=== PATIENT | female | born 1980 | race Caucasian/White ===

== ENCOUNTER 2020-12-18 19:37 | Emergency (ER) | payer OTHER, SELFPAY ==
--- NOTE | ~2020-12-18 | XR_ITS ---
EXAMINATION: XR HAND, RIGHT CLINICAL INFORMATION: Trauma COMPARISON: None TECHNIQUE: PA, lateral, and oblique views of the right hand. FINDINGS: No acute fracture or dislocation. XR/XR hand RT min 3V IMPRESSION: No acute fracture or dislocation right hand.
[2020-12-18 19:42] VITALS: BP 106/78; PULSE 89; RESP 16; TEMP 36.9; O2SAT 99; BMI 27.2
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
== END 2020-12-18 21:45 | disposition home or self-care (01) ==
PROVIDERS: Emergency Provider Internal Medicine
DX: S60.221A Contusion of right hand, initial encounter (principal); M77.12 Lateral epicondylitis, left elbow; X58.XXXA Exposure to other specified factors, initial encounter; Y93.9 Activity, unspecified; Y92.9 Unspecified place or not applicable; Y99.9 Unspecified external cause status
CPT/HCPCS: 73130; 99283

== ENCOUNTER 2021-09-18 12:23 | Emergency (ER) | payer OTHER, SELFPAY ==
[2021-09-18 12:26] VITALS: BP 126/72; PULSE 96; RESP 16; TEMP 36.7; O2SAT 97; BMI 27.2
--- NOTE | 2021-09-18 13:21 | ED.WOUNDLAC ---
HPI - Wound/Laceration General Chief Complaint: Wound/Laceration Stated Complaint: laceration on thumb Time Seen by Provider: 09/18/21 12:49 Source: patient Mode of arrival: ambulatory Limitations: no limitations History of Present Illness HPI narrative: 40-year-old female presenting to the ED with complaints of a laceration to the inner aspect of her thumb that she cut on glass at home last night accidentally. She reports that she is up-to-date on tetanus. She denies any thoughts of foreign bodies or any paresthesias or any other injuries complaints or concerns at this time. Onset (ago): hour(s) ( Last night) Extremity Location: left: hand (thumb) Place: home Patient tetanus UTD: Yes Context: accidental Associated symptoms: none Related Data Previous Rx's Medication Instructions Recorded ibuprofen 800 mg tablet 800 mg PO Q8H PRN #20 tab 12/18/20 cephalexin 500 mg capsule 500 mg PO Q6H 7 Days #28 cap 09/18/21 Allergies Allergy/AdvReac Type Severity Reaction Status Date / Time No Known Allergies Allergy Verified 09/18/21 12:29 Review of Systems Review of Systems: Constitutional : No Fever, No Chills, Cardiovascular : No Chest Pain, No SOB Respiratory : No Dyspnea Gastrointestinal : No abdominal pain Musculoskeletal : No Joint Swelling Skin : positive skin laceration, No Foreign bodies, No rash, No surrounding erythema Neuro : No Weakness, No Numbness/tingling Psych : No SI/HI/thoughts of self injury Yes all other systems are reviewed and are negative [facility] Past Medical History Attestation statement: The following information was validated with the patient. Medical History No known health problems Social History Social History Advance Directives: No Patient : No Physical Exam Vital Signs: Vital Signs: Last Vital Signs Temp 98.1 F 09/18/21 12:26 Pulse 96 09/18/21 12:26 Resp 16 09/18/21 12:26 BP 126/72 09/18/21 12:26 Pulse Ox 97 09/18/21 12:26 BMI result Body Mass Index 27.2 vital signs have been reviewed as normal and appeared to be correct. Blood pressure normal Heart rate normal. Respiration rate normal. Temperature normal. Oxygen saturation normal. Appearance: Alert. Oriented X3. No acute distress. Head: Normal external exam. Normocephalic. Atraumatic. Eyes: PERRLA. EOMI. Conjunctiva and sclera normal. Eyelids normal. ENT: Pharynx normal. Uvula midline. Moist mucous membranes. Neck: Normal inspection. Neck supple. FROM. CVS: Normal heart rate and rhythm. Respiratory: No respiratory distress. Painless inspiration. Skin: Skin warm and dry. Normal skin color. Normal skin turgor. No rashes/lesions/lacerations noted. Extremities: to left thumb palmar aspect /proximal aspect patient has less than 1 cm superficial laceration no active bleeding or foreign bodies. She has full range of motion of the fingers. No bony tenderness noted. No obvious ligamentous or tendon injury nerve injury noted. Otherwise all other Extremities exhibit normal range of motion and nontender. Neuro: Oriented X 3. No motor deficit. No sensory deficit. Reflexes normal. Normal steady gait. No focal neuro deficits noted. Vascular: + radial pulses/+ 2 distal pedal pulses/+2 dorsalis pedis b/l. Normal cap refill. No cyanosis noted to upper extremity nails and lower extremity toes nails. Course Course Course Narrative: patient status post laceration repair with Dermabond. Tetanus is already up-to-date. No imaging indicated. Will DC home with antibiotics and instructions to return if any new or worsening symptoms to follow up with primary care provider. Patient understands agrees with this plan. MDM - Wound/Laceration Medical Records Attestation: I reviewed the patient's medical records. Discharge Plan Discharge Clinical Impression: Laceration Patient Disposition: Home, Self-Care Instructions: Skin Adhesive Care (ED) Prescriptions: New cephalexin 500 mg capsule 500 mg PO Q6H 7 Days Qty: 28 0RF No Action ibuprofen 800 mg tablet 800 mg PO Q8H PRN (Reason: pain) Qty: 20 0RF Referrals: Physician,Unknown J [Primary Care Provider] - 2 days (your pcp) Print Language: Mongolian
== END 2021-09-18 13:32 | disposition home or self-care (01) ==
PROVIDERS: Emergency Provider Emergency Medicine
DX: S61.012A Laceration without foreign body of left thumb without damage to nail, initial encounter (principal); W25.XXXA Contact with sharp glass, initial encounter; Y93.9 Activity, unspecified; Y92.009 Unspecified place in unspecified non-institutional (private) residence as the place of occurrence of the external cause; Y99.9 Unspecified external cause status
CPT/HCPCS: 12001; 99283

== ENCOUNTER 2021-11-06 21:41 | Emergency (ER) | payer OTHER, SELFPAY ==
[2021-11-06 21:47] VITALS: BP 142/70; PULSE 119; RESP 16; TEMP 38; O2SAT 100; BMI 28.3
[2021-11-06 22:13] LABS: COVID-19 Test Negative (Negative); IDNOW Serial# 16C4AD1C; Influenza A Negative (Negative); Influenza B2 Negative (Negative)
[2021-11-07 05:14] VITALS: BP 138/76; PULSE 103; RESP 18; TEMP 36.9; O2SAT 99
--- NOTE | 2021-11-07 05:52 | ED_ITS ---
HPI - Fever General Chief Complaint: Fever Stated Complaint: Flu like symptoms Time Seen by Provider: 11/07/21 05:52 Source: patient Mode of arrival: ambulatory History of Present Illness HPI Narrative: A 40-year-old female without significant past medical history presents with complaints of body aches, headache, subjective fevers and chills but denies any GI or symptoms and denies any shortness of breath or palpitations. Related Data Previous Rx's Medication Instructions Recorded ibuprofen 800 mg tablet 800 mg PO Q8H PRN #20 tab 12/18/20 cephalexin 500 mg capsule 500 mg PO Q6H 7 Days #28 cap 09/18/21 Allergies Allergy/AdvReac Type Severity Reaction Status Date / Time No Known Allergies Allergy Verified 09/18/21 12:29 Review of Systems Review of Systems: Pertinent positives and negatives as stated in HPI 10 point review of systems otherwise negative. [facility] Past Medical History Source: nursing notes reviewed Medical History No known health problems Social History Social History Advance Directives: No Physical Exam Vital Signs: Vital Signs: Last Vital Signs Temp 98.5 F 11/07/21 05:14 Pulse 103 H 11/07/21 05:14 Resp 18 11/07/21 05:14 BP 138/76 11/07/21 05:14 Pulse Ox 99 11/07/21 05:14 BMI result Body Mass Index 28.3 VITAL SIGNS: Reviewed. GENERAL: Well developed, well nourished, in no acute distress. HEAD: Normocephalic/atraumatic EYES: PERRLA, EOMI EARS: Ext canals without abnormality, TMs non-bulging and non-erythematous NOSE: Nares patent bilateral OROPHARYNX: no oral lesions noted, posterior pharynx clear and non-erythematous without noted tonsillar enlargement/erythema/exudates NECK: Supple, no adenopathy LUNGS: Normal breath sounds. No adventitious sounds or accessory muscle use. SpO2<99> CARDIOVASCULAR: Regular rate and rhythm without noted murmurs ABDOMEN: Soft, non-tender, non-distended with bowel sounds. MUSCULOSKELETAL: No tenderness, deformities, or effusions noted on gross inspection. EXTREMITIES: No cyanosis, clubbing or edema. SKIN: Inspection of the skin reveals no rashes NEUROLOGIC: Alert and oriented x 4. Course Course Course Narrative: 40-year-old female with history and clinical presentation consistent with viral syndrome and on review of all investigations COVID-19 and influenza are negative. However on discussion with the patient she was cautioned that this does not mean that she is negative and it is recommended that she should continue to test herself for COVID-19 for the next 2-3 days, use [id number] Tylenol/ibuprofen as needed for her symptoms. MDM - Fever Lab Data Labs: Lab Results 11/06/21 11/06/21 Range/Units 21:50 21:50 COVID-19 ([facility]) Negative (Negative) COVID-19 Clin Com See Note Influenza Type A ([facility]) Negative (Negative) Influenza Type B ([facility]) Negative (Negative) Influenza A & B Note See Note Discharge Plan Discharge Clinical Impression: Viral syndrome, Lab test negative for COVID-19 virus, Influenza A virus not detected Patient Disposition: Home, Self-Care Instructions: Viral Syndrome (ED) Additional Instructions: 1. Recommend [id number] Tylenol/ibuprofen as needed for body aches, headaches, temperatures greater than 100.4. 2. Increase fluid hydration, especially with water. 3. Recommend that you retest yourself for COVID-19 utilizing the [id number] home tests. Return to the ER for worsening symptoms. Prescriptions: No Action ibuprofen 800 mg tablet 800 mg PO Q8H PRN (Reason: pain) Qty: 20 0RF cephalexin 500 mg capsule 500 mg PO Q6H 7 Days Qty: 28 0RF Stand Alone Forms: Work/School Release
[2021-11-07] MEDS: Acetaminophen 325 MG TABLET 975 MG PO (06:11)
[2021-11-07] MEDS: Ibuprofen 400 MG TABLET PO (06:11)
== END 2021-11-07 06:18 | disposition home or self-care (01) ==
PROVIDERS: Emergency Provider Student in an Organized Health Care Education/Training Program
DX: B34.9 Viral infection, unspecified (principal); R50.9 Fever, unspecified; M79.10 Myalgia, unspecified site; R51.9 Headache, unspecified; Z20.822 Contact with and (suspected) exposure to COVID-19; Z79.899 Other long term (current) drug therapy
CPT/HCPCS: 87502; 87635; 99283